=== PATIENT | female | born 1950 | race Caucasian/White ===

== ENCOUNTER 2023-08-25 09:30 | Outpatient (RCR) | payer MEDICARE, OTHER, SELFPAY ==
--- NOTE | 2023-07-15 16:15 | HP.OTEVAL ---
Patient's Visit Information Visit Information Visit Information: MARISA RODRIGUEZ is a 72 year old F, referred to Occupational Therapy by Dr. Jan Pena, DO, with a diagnosis of right CMC OA. Date of Evaluation: 07/15/23 Occupational Therapist: Katty Terry, OTR/Mei, CHT Subjective Subjective: This 72 year old female was seen for OT eval with dx of a right CMC OA with cast on. 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 Pt had sx on June 16. pt is happy with how she feels but ready to get moving. s/p 4 weeks s/p from a right cmc arthroplasty. pt arrives in need of custom orthosis. pt is right handed and limited with all her ADLs and IADls. ADLs Comments: pt states she can mtg her ADls if she needs help she has someone who can help her. Pain right hand: Current Pain Intensity: 3 Pain Intensity Range: 1 ROM Wrist: right 25/35 left 60/65 CMC: right 0 left 10 MP: right 15 left 55 IP: right 20 left 35 Strength Receiver/Laborer: right NT left 50 Lateral Pinch: right NT left 14# Tripod Pinch: right NT left 12# Sensation Sensation Comments: denies Quick DASH-Disab of Arm,Shoulder& Hand Quick DASH Score: 73.3325 Goals Goal:100% adherence to protocol: Yes Comment: Dr. Pena cmc arthroplasty Goal:Daily scar massage when approriate: Yes Goal:ROM equal to unaffected hand: Yes Goal:Receiver/Laborer/Pinch strength at least 75% of unaffected hand: Yes Comment: will initiate at week 6 Goal:No pain with affected hand use: Yes Goal:Full use of affected hand in daily activities including work: Yes Rehabilitation General Assessment: pt arrives 4 weeks s/p form a cmc arthroplasty. pt is limited with all ADLs and IADls at this time. Pt demo need for custom orthosis to provide protection and support. pt is in need of skilled OT services 1-2x week for 6 weeks to return pt to her PLOF. Today therapist carleen. custom orthosis ed. pt in wear and care- pt demo understanding- therapist ed. pt on short arch wrist ROM and supported CMC mp and Ip flexion- pt advised no CMC or MP hyper ext. pt demo understanding and agree to POC. Rehabilitation Potential: Good Anticipated Interventions Anticipated Interventions: A/AAROM/PROM, Strengthening, Scar Care, Triggerpoint Release, Desensitization, Sensory Retraining, Modalities, Orthoses, Joint Protection/Energy Conservation, Ergonomic Education, Education re assistive Equipment, Education re Diagnosis and Home Program Visit Plan Frequency: 1-2x /Week Duration: 6 Weeks General Plan: Dr. Pena protocol for MCP capsulodesis with carpometacarpal arthroplasty s/p week 4 begin wrist ROM exercise Fabricate thumb spica orthosis- keep IPJ free Position wrist in 15* extension Maintain Neutral radiaoulnar deviation Place thumb in comfortable position of about 40*-50* palmar abduction keeping fingers free -encourage finger ROM Week 6 Re-form orthosis so that MCPJ is held in 20* to 30* flexion Begin motion of MCP joint with orthosis off but with exercise off but with exercise orthosis (finger of 8 or oval 8 orthosis) in place IPJ should be allowed full motion and MCPJ should be allowed full flexion. Avoid stretching the volar plat or stretching the thumb into abduction at the web space Week 8 wean MCPJ from thumb spica orthosis. Fabricate hand-based orthosis to hold MCPJ in 20* flexion (or use orthosis that was employed as exercise orthosis for daily activities) choice depends on activity level of pt. Week 10 Begin light isometric strengthening exercises 2x/day within pain tolerance Practice gripping abound objects of various circumferences in various positions with small orthosis for MCPJ in place Week 12 use hand-based orthosis only for high-demand activities Week 16 d/c use of orthosis if MCPJ is stable at 0* or greater in resting position (NO Hyperextension) TEXT: Thank you for the opportunity to evaluate your patient. For Medicare and Medicare HMO plans, please review the plan of care and approve it. It will need to be FAXED BACK to us at [phone] for Medicare purposes. Please let me know if there are questions or concerns regarding this plan of care. Physician Signature: Date:
--- NOTE | 2023-08-25 10:01 | HP.OTDCSUM ---
Discharge Summary D/C Summary: It has been my pleasure to treat MARISA RODRIGUEZ under orders from Dr. Jan Pena, DO, for the diagnosis of right CMC OA for a total of 7 visit(s). Please see the following information for a summary of their discharge status. Overall Improvement % Improvement: 95 Objective Objective/Function: right wrist ROM 55/45 right IP flexion 35* right MP flexion 40* right CMC flexion 10* right meter changes records clerk strength 40# left is 55# right lateral pinch 8# left 14# right tripod pinch 4# left 12# pt has made great gains with her ROM strength pt reports she is ind. with all ADLs and IADLs. pt states she will continue with thumb stabilization ex. pt agrees to D.C. Goals Patient Goals: Regain Mobility, Regain Strength, Improve Fine Motor Skills, Use Hand/Wrist/Arm Normally Again and Be More Independent in ADLS Goal:100% adherence to protocol: Yes Goal Progress: Goal Met Goal:Daily scar massage when approriate: Yes Goal Progress: Goal Met Goal:ROM equal to unaffected hand: Yes Goal Progress: goal met at 90% Goal:Object Oriented Programmer/Pinch strength at least 75% of unaffected hand: Yes Goal Progress: Goal Met Goal:No pain with affected hand use: Yes Goal Progress: Goal Met Goal:Full use of affected hand in daily activities including work: Yes Goal Progress: Goal Met Plan Plan: D.C D/C Information Discharge Comments: pt was seen in 7 session. pt has met OT goals. pt agrees to D/C and diego cont. with joint protection naheed. and thumb stabilization ex. d/c sentence: If there are questions or concerns regarding this patient's occupational therapy, please fell free to call me at [phone]. Thank you for the referral of this patient. Sincerely, Katty Terry, OTR/L, CHT
== END 2023-08-25 10:26 | disposition home or self-care (01) ==
LOC: OT 09:30
PROVIDERS: PCP Internal Medicine Infectious Disease; Referring Provider Student in an Organized Health Care Education/Training Program; Visit Provider Student in an Organized Health Care Education/Training Program
DX: M18.11 Unilateral primary osteoarthritis of first carpometacarpal joint, right hand (principal); M19.041 Primary osteoarthritis, right hand
CPT/HCPCS: 97110; 97140; 97166; 97530; 97760